=== PATIENT | male | born 1990 | race Two or more races ===

== ENCOUNTER 2022-02-11 16:18 | Emergency (ER) | payer OTHER ==
[~2022-02-11] VITALS: Ht 172.7 cm; Wt 109.1 kg
[2022-02-11 20:10] VITALS: BP 111/57
[2022-02-11] MEDS ORDERED: KETOROLAC TROMETH 30 MG/ML 1ML VIAL IM ONE (20:15)
[2022-02-11] MEDS ORDERED: CYCL-838 PO (20:25)
[2022-02-11] MEDS ORDERED: IBUP800T26 PO (20:25)
== END 2022-02-11 20:40 | disposition home or self-care (01) ==
LOC: ER 16:18
DX: M54.50 Low back pain, unspecified (principal); V89.2XXA Person injured in unspecified motor-vehicle accident, traffic, initial encounter; Y93.89 Activity, other specified; Y92.89 Other specified places as the place of occurrence of the external cause; Y99.8 Other external cause status
CPT/HCPCS: 72100; 96372; 99283; J1885

== ENCOUNTER 2024-01-31 22:23 | Emergency (ER) | payer OTHER ==
[~2024-01-31] VITALS: Ht 167.6 cm; Wt 100.0 kg
[~2024-01-31 22:23] MED LIST: CYCL-838 PO; IBUP-1455 PO
[2024-01-31 22:41] VITALS: BP 116/56; PULSE 70; RESP 17; O2SAT 97
[2024-01-31] MEDS: KETOROLAC TROMETH 60MG/2ML VIAL IM ONE (22:56)
[2024-02-01] MEDS ORDERED: AMOX875T4 PO (01:27)
[2024-02-01] MEDS ORDERED: IBUP-1456 PO (01:27)
[2024-02-01] MEDS: BENZOCAINE (DENTAL) 20 % SPRAY 60ML MT ONE (01:29)
[2024-02-01] MEDS ORDERED: HUR60 MT (01:30)
== END 2024-02-01 01:36 | disposition home or self-care (01) ==
LOC: ER 22:23
DX: K04.7 Periapical abscess without sinus (principal); Z79.899 Other long term (current) drug therapy
CPT/HCPCS: 96372; 99283; J1885